=== PATIENT | male | born 1970 | race Caucasian/White ===

== ENCOUNTER 2021-01-04 19:45 | Observation (INO) ==
[2021-01-04] MEDS ORDERED: ALUM/MAG/SIMETH/LIDO VISC 1:1 30 ML BOTTLE PO STA (20:44)
[2021-01-04 20:52] LABS: Basophils % 0.4 % (0.0-0.8); Eosinophils # 0.1 10*3/uL (0.0-0.87); Eosinophils % 0.7 % (0.00-10.9); Hematocrit 46.7 VOL% (42.0-52.0); Immature Granulocytes % 0.3 %; Immature Granulocytes Absolute 0.02 #; Lymphocytes # 2.6 10*3/uL (1.4-4.0); Lymphocytes % 34.8 % (21.2-54.2); Mean Corpuscular HGB Conc 34.3 GM/DL (32-36); Mean Corpuscular Volume 92.7 FL (87-102); Mean Platelet Volume 10.4 FL (9.6-12.0); Monocytes % 8.6 % (1.7-12.7); Neutrophils % 55.2 % (38.7-73.9); Platelet Count 196 T/CUMM (130-400); Red Blood Count 5.04 MC/CUMM (3.8-5.5); White Blood Count 7.4 T/CUMM (4-12)
[2021-01-04 21:11] LABS: Albumin 4.3 G/DL (3.4-5.0); Bilirubin,Total 0.8 MG/DL (0.20-1.00); Calcium 9.3 MG/DL (8.5-10.1); Osmolality,Calculated 281.3 MOS/KG (273-304); Total Protein 7.8 G/DL (6.4-8.2)
[2021-01-04] MEDS ORDERED: GLUCAGON 1 MG VIAL IM PRN (22:11)
[2021-01-04] MEDS ORDERED: diphenhydrAMINE CAP 25 MG CAPSULE PO PRN ×2 (22:11→23:52)
[2021-01-04] MEDS ORDERED: ACETAMINOPHEN 325 MG TABLET PO PRN ×2 (22:11→23:52)
[2021-01-04] MEDS ORDERED: hydrALAZINE 20 MG/1 ML VIAL IV PRN (22:11)
[2021-01-04] MEDS ORDERED: ONDANSETRON 4 MG/2 ML VIAL IV PRN ×2 (22:11→23:52)
[2021-01-04] MEDS ORDERED: guaiFENesin/DM ER 600-30 MG TABLET PO PRN (22:11)
[2021-01-04] MEDS ORDERED: DEXTROSE 50% 25 GM/50 ML VIAL IV PRN (22:11)
[2021-01-04] MEDS ORDERED: NICOTINE 21 MG/24 HR PATCH TRANSDERM PRN (22:11)
[2021-01-04] MEDS ORDERED: MORPHINE 2 MG/1 ML SYRINGE IV PRN (22:11)
[2021-01-04] MEDS ORDERED: ZALEPLON 5 MG CAPSULE PO PRN (22:11)
[2021-01-04] MEDS ORDERED: DOCUSATE SODIUM 100 MG CAPSULE PO PRN (22:11)
[2021-01-04] MEDS ORDERED: NITROGLYCERIN SL 0.4 MG TABLET SL STA (22:14)
[2021-01-04 22:29] LABS: Risk Ratio 4.51; VLDL Cholesterol 29.4 MG/DL
[2021-01-04] MEDS ORDERED: MECLIZINE 25 MG TABLET PO PRN (23:52)
[2021-01-04] MEDS ORDERED: methylPREDNISolone SOD SUC 125 MG/2 ML VIAL IM PRN (23:52)
[2021-01-04] MEDS ORDERED: CASIRIVIMAB/IMDEVIMAB 1,200 MG in SODIUM CHLORIDE 0.9% 100 ML IV ONE (23:52)
[2021-01-04] MEDS ORDERED: diphenhydrAMINE 50 MG/1 ML VIAL IV PRN ×2 (23:52)
[2021-01-04] MEDS ORDERED: diphenhydrAMINE CAP 50 MG CAPSULE PO PRN (23:52)
[2021-01-04] MEDS ORDERED: ONDANSETRON 4 MG TABLET PO PRN (23:52)
[2021-01-04] MEDS ORDERED: methylPREDNISolone SOD SUC 125 MG/2 ML VIAL IV PRN (23:52)
[2021-01-05] MEDS ORDERED: ENOXAPARIN 80 MG/0.8 ML SYRINGE SUBCUT ONE (00:46)
[2021-01-05 05:20] VITALS: BP 121/84
[2021-01-05] MEDS ORDERED: ENOXAPARIN 40 MG/0.4 ML SYRINGE SUBCUT SCH (09:00)
[2021-01-05] MEDS ORDERED: ENOXAPARIN 80 MG/0.8 ML SYRINGE SUBCUT SCH ×2 (09:00→12:00)
[2021-01-05] MEDS ORDERED: APIXABAN 5 MG TABLET PO SCH (09:00)
[2021-01-05] MEDS ORDERED: PANTOPRAZOLE 40 MG TABLET PO SCH (09:00)
[2021-01-05] MEDS ORDERED: ASPIRIN EC 81 MG TABLET PO SCH (12:00)
[2021-01-05] MEDS ORDERED: METOPROLOL SUCCINATE XL 50 MG TABLET PO SCH (12:00)
[2021-01-05] MEDS ORDERED: ROSUVASTATIN 20 MG TABLET PO SCH (12:00)
[2021-01-06] MEDS ORDERED: METOPROLOL SUCCINATE XL 50 MG TABLET PO SCH (12:00)
[2021-01-06] MEDS ORDERED: ROSUVASTATIN 20 MG TABLET PO SCH (12:00)
== END 2021-01-05 13:05 | disposition home or self-care (01) ==
LOC: N.ED 19:45 → N.EDINP 23:19 → INTOOBSV 23:19 → N.CC 01-05 01:13
PROVIDERS: ADMIT Internal Medicine; ATTEND Internal Medicine

== ENCOUNTER 2021-12-24 05:34 | Inpatient (IN) ==
[2021-12-24] MEDS: SODIUM CHLORIDE 0.9% 1,000 ML IV SCH (06:01)
[2021-12-24 06:09] LABS: Basophils % 0.2 % (0.0-0.8); Hematocrit 43.2 VOL% (42.0-52.0); Hemoglobin 14.9 GM/DL (14.0-18.0); Immature Granulocytes % 0.5 %; Immature Granulocytes Absolute 0.05 #; Lymphocytes # 0.6 10*3/uL (1.4-4.0); Lymphocytes % 5.2 % (21.2-54.2); Mean Corpuscular HGB Conc 34.5 GM/DL (32-36); Mean Corpuscular Volume 92.9 FL (87-102); Mean Platelet Volume 9.3 FL (9.6-12.0); Monocytes # 0.4 10*3/uL (0.11-0.8); Monocytes % 3.5 % (1.7-12.7); Neutrophils % 90.6 % (38.7-73.9); Platelet Count 190 T/CUMM (130-400); Red Blood Count 4.65 MC/CUMM (3.8-5.5); Red Cell Distribution Width 11.9 % (9.3-17.3)
[2021-12-24 06:27] LABS: Albumin 3.8 G/DL (3.4-5.0); Bilirubin,Total 0.7 MG/DL (0.20-1.00); Calcium 8.7 MG/DL (8.5-10.1); Osmolality,Calculated 285.8 MOS/KG (273-304); Potassium 3.9 MMOL/L (3.5-5.1); Total Protein 7.4 G/DL (6.4-8.2)
[2021-12-24 06:42] LABS: Band Neutrophils 1 % (0-10); Lymphocytes 3 % (20-55); Total Cells Counted 100
[2021-12-24] MEDS ORDERED: HYDROmorphone 1 MG/1 ML SYRINGE ONE (12:35)
[2021-12-24] MEDS ORDERED: HYDROmorphone 1 MG/1 ML SYRINGE IV ONE (12:35)
[2021-12-24] MEDS ORDERED: HYDROmorphone 1 MG/1 ML SYRINGE IV PRN (13:42)
[2021-12-24] MEDS ORDERED: KETOROLAC 30 MG/1 ML VIAL IV PRN (13:42)
[2021-12-24] MEDS ORDERED: BISACODYL 5 MG TABLET PO PRN (13:42)
[2021-12-24] MEDS: ACETAMINOPHEN 325 MG TABLET PO PRN (15:43)
[2021-12-24] MEDS: LACTATED RINGERS 1,000 ML IV SCH ×2 (15:44→23:01)
[2021-12-24] MEDS: PIPERACILLIN/TAZOBACTAM 3,375 MG in SODIUM CHLORIDE 0.9% 100 ML IV SCH ×2 (16:13→21:30)
[2021-12-24] MEDS ORDERED: SIMETHICONE CHEW 125 MG TABLET PO PRN (20:06)
[2021-12-24] MEDS: ROSUVASTATIN 20 MG TABLET PO SCH (21:20)
[2021-12-25] MEDS: ACETAMINOPHEN 325 MG TABLET PO PRN (00:18)
[2021-12-25] MEDS: SODIUM CHLORIDE 0.9% 1,000 ML IV SCH (05:46)
[2021-12-25] MEDS ORDERED: INDOCYANINE GREEN 25 MG VIAL IV ONE (06:30)
[2021-12-25] MEDS: PIPERACILLIN/TAZOBACTAM 3,375 MG in SODIUM CHLORIDE 0.9% 100 ML IV SCH ×3 (06:45→21:30)
[2021-12-25] MEDS: LACTATED RINGERS 1,000 ML IV SCH ×2 (06:53→14:16)
[2021-12-25] MEDS: PANTOPRAZOLE 40 MG TABLET PO SCH (09:07)
[2021-12-25] MEDS: ASPIRIN EC 81 MG TABLET PO SCH (09:07)
[2021-12-25] MEDS: METOPROLOL SUCCINATE XL 50 MG TABLET PO SCH (09:07)
[2021-12-25] MEDS ORDERED: MIDAZOLAM 2 MG/2 ML VIAL ONE (10:39)
[2021-12-25] MEDS ORDERED: fentaNYL 100 MCG/2 ML VIAL ONE ×2 (10:39→13:09)
[2021-12-25] MEDS ORDERED: LIDOCAINE 2% 5 ML VIAL ONE (10:39)
[2021-12-25] MEDS ORDERED: propofoL 200 MG/20 ML VIAL IV ONE (10:39)
[2021-12-25] MEDS ORDERED: ROCURONIUM 50 MG/5 ML VIAL IV ONE (10:39)
[2021-12-25] MEDS ORDERED: LIDOCAINE 1% 5 ML VIAL ONE (11:10)
[2021-12-25] MEDS ORDERED: BUPIVACAINE MPF 0.25% 10 ML VIAL ONE (11:10)
[2021-12-25] MEDS ORDERED: ONDANSETRON 4 MG/2 ML VIAL ONE (12:48)
[2021-12-25] MEDS ORDERED: KETOROLAC 30 MG/1 ML VIAL ONE (13:26)
[2021-12-25] MEDS ORDERED: ACETAMINOPHEN INJ 1,000 MG/100 ML VIAL IV ONE (13:26)
[2021-12-25] MEDS ORDERED: SUGAMMADEX 200 MG/2 ML VIAL IV ONE (13:26)
[2021-12-25] MEDS ORDERED: SEVOFLURANE 1 UNIT/15 MINUTE INH ONE (13:30)
[2021-12-25] MEDS ORDERED: TISSUE ADHESIVE 1 EACH APPLICATOR TOP ONE (13:31)
[2021-12-25] MEDS ORDERED: PHENYLEPHRINE 1 MG/10 ML SYRINGE IV ONE (13:54)
[2021-12-25] MEDS: HYDROmorphone 1 MG/1 ML SYRINGE IV PRN ×6 (14:05→20:44)
[2021-12-25] MEDS ORDERED: PROMETHAZINE 25 MG/1 ML VIAL ONE (14:05)
[2021-12-25] MEDS ORDERED: MEPERIDINE 25 MG/1 ML VIAL IV PRN (14:06)
[2021-12-25] MEDS ORDERED: diphenhydrAMINE 50 MG/1 ML VIAL IV PRN (14:06)
[2021-12-25] MEDS ORDERED: ONDANSETRON 4 MG/2 ML VIAL IV PRN (14:06)
[2021-12-25] MEDS ORDERED: PROMETHAZINE INJ 25 MG in SODIUM CHLORIDE 0.9% 50 ML IV PRN ×2 (14:06→20:23)
[2021-12-25] MEDS: ONDANSETRON 4 MG/2 ML VIAL IV PRN ×2 (15:18→19:25)
[2021-12-25] MEDS: ROSUVASTATIN 20 MG TABLET PO SCH (20:49)
[2021-12-26 05:24] LABS: Basophils % 0.1 % (0.0-0.8); Eosinophils # 0.1 10*3/uL (0.0-0.87); Eosinophils % 0.7 % (0.00-10.9); Hematocrit 41.4 VOL% (42.0-52.0); Hemoglobin 14.3 GM/DL (14.0-18.0); Immature Granulocytes % 0.3 %; Immature Granulocytes Absolute 0.02 #; Lymphocytes # 1.7 10*3/uL (1.4-4.0); Lymphocytes % 24.4 % (21.2-54.2); Mean Corpuscular HGB Conc 34.5 GM/DL (32-36); Mean Corpuscular Volume 92.4 FL (87-102); Mean Platelet Volume 9.3 FL (9.6-12.0); Monocytes # 0.7 10*3/uL (0.11-0.8); Monocytes % 9.4 % (1.7-12.7); Neutrophils % 65.1 % (38.7-73.9); Platelet Count 178 T/CUMM (130-400); Red Blood Count 4.48 MC/CUMM (3.8-5.5); Red Cell Distribution Width 11.9 % (9.3-17.3); White Blood Count 6.9 T/CUMM (4-12)
[2021-12-26] MEDS: PIPERACILLIN/TAZOBACTAM 3,375 MG in SODIUM CHLORIDE 0.9% 100 ML IV SCH (06:20)
[2021-12-26] MEDS: ASPIRIN EC 81 MG TABLET PO SCH (08:43)
[2021-12-26] MEDS: METOPROLOL SUCCINATE XL 50 MG TABLET PO SCH (08:44)
[2021-12-26] MEDS: PANTOPRAZOLE 40 MG TABLET PO SCH (08:44)
[2021-12-26 11:05] VITALS: BP 129/88
== END 2021-12-26 12:06 | disposition home or self-care (01) | DRG 419 ==
LOC: EDUNIT# → N.ED 05:34 → N.EDINP 13:42 → N.3E 15:30
PROVIDERS: ADMIT Surgery; ATTEND Surgery